=== PATIENT | male | born 1945 | race Caucasian/White ===

== ENCOUNTER → 2016-12-22 | Day surgery (SDC) | payer OTHER ==
[~2016-12-22] MED LIST: AMLO10 PO; ANTISOL30 LEFT EAR; BENZ100 PO; BUPIVACAINE/EPINEPHRINE 0.25% 50 ML VIAL ONE; IRBE150T51 PO; LACTATED RINGER'S 1000 ML INJ 1,000 ML ONE; MIDAZOLAM HCL 2 MG/2 ML VIAL ONE; ROSU40 PO; ZITH250T PO; ceFAZolin 2 GM PREMIX 50 ML ONE
== END | disposition home or self-care (01) ==
LOC: ESDC 12:15
PROVIDERS: ATTEND Surgery Trauma Surgery
DX: K40.20 Bilateral inguinal hernia, without obstruction or gangrene, not specified as recurrent (principal)
CPT/HCPCS: J0690; J2250; J7120

== ENCOUNTER → 2016-12-29 | Day surgery (SDC) | payer OTHER ==
[~2016-12-29] MED LIST changes: +BUPIVACAINE/EPINEPHRINE 0.75% PF 30 ML VIAL INFIL ONE; +KETOROLAC TROMETHAMINE 30 MG/ML (IVP) VIAL IV PUSH ONE; +ONDANSETRON HCL 4 MG/2 ML VIAL IV PUSH ONE; +PROPOFOL 200 MG/20 ML AMP IV ONE
--- NOTE | 2016-12-29 14:20 | TN ---
cc: JAQUAN NAVA M.D. DATE OF SURGERY: 12/29/2016 PREOPERATIVE DIAGNOSIS Bilateral inguinal hernia umbilical hernia. POSTOPERATIVE DIAGNOSES Bilateral inguinal hernia, umbilical hernia. PROCEDURE Laparoscopic repair bilateral inguinal hernia with mesh umbilical hernia repair. SURGEON Jaquan Nava MD. ANESTHESIA General INDICATIONS This is a pleasant 71-year-old gentleman who looks much younger than his stated age who presents with complaints of suprapubic discomfort. He was noted to have an umbilical hernia by Dr. Easton. PHYSICAL EXAMINATION: Physical examination demonstrates a small bilateral reducible inguinal hernias and a small reducible umbilical hernia. INTRAOPERATIVE FINDINGS Bilateral indirect inguinal hernias. Weak inguinal floor on the right. 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 ESTIMATED BLOOD LOSS: Estimated blood loss is minimal. DESCRIPTION OF PROCEDURE IN DETAIL The patient identified as Stepan as on taken to upper and placed supine position. Sequential compression devices were placed on bilateral lower extremities. Following induction of adequate general anesthesia the patient's lower abdomen was prepped and draped in usual sterile fashion with Betadine. A time-out procedure was performed. Following completion time-out procedure everyone's satisfaction within the room local anesthetic was placed in and around the umbilicus. Infraumbilical small transverse incision was carried out with scalpel umbilical skin was lifted off the herniated tissue through the defect which was about a centimeter in size. Anterior rectus fascia left side was then cleared anteriorly and on its medial border was incised with scalpel allowing for development of preperitoneal plane posterior to the muscle directed towards the pubic symphysis. The patient slight Trendelenburg position. The preperitoneal dissecting balloon was placed in preperitoneal space its balloon inflated to insufflation to level of 11 mmHg ensued. On summary the lead less intense the preperitoneal dissecting balloon was placed in preperitoneal space under direct laparoscopic view inflated to a total of approximately 30 pumps. This lap identification of symphysis pubis on bilateral Phoenix's ligaments. The wound was desufflated and the structural balloon trocar placed in preperitoneal space its balloon inflated to insufflation to level of 11 mmHg ensued. Two infraumbilical midline 5 mm trocars were placed in preperitoneal space under direct laparoscopic view after incision skin with scalpel. The attention was turned to left side first. Blunt dissection lateral and posterior spermatic cord was performed. The anteromedial surface examined and indirect hernias sac was reduced from the internal inguinal ring to the base of spermatic cord. Posterior laterally a spermatic cord lipoma was present was reduced from the inguinal canal to the preperitoneal space. A 4 x 6 inches piece of atrium Prolene mesh was then placed across the anterolateral placed with an anterolateral slit and around surrounding the spermatic cord and tacked position pro tack device. Tacks were placed to approximate the anterolateral slit along the inferior lateral border of Phoenix's ligament a two x 6 inches piece of mesh was then placed across the anterolateral slit and held position with the capture device. Tacks were placed in inferomedial superior medial and superior laterally. Care was taken to avoid tack placement inferolaterally to avoid cutaneous nerve injury. Attention was then turned to the right side. Similar blunt dissection ensued and nearly identical findings were discovered. An indirect inguinal hernia sac was reduced to the base of spermatic cord. A small spermatic cord lipoma was reduced from the internal inguinal ring. Photographs taken of the hernia defect and a 4 x 6 inches piece of atrium Prolene mesh was cut to an anterolateral slit placed around the spermatic cord and tacked position with the capture device. A 2 x 6 inches piece of mesh was placed to cover the anterolateral slit and held position of the capture device tacks were placed inferomedial superior medially and the superior laterally. Care was taken to avoid tack placement inferolaterally to avoid cutaneous nerve injury. Photographs were taken. The completed repairs. Remaining local anesthetic was placed in the preperitoneal space. Trocars removed under direct visualization was also bleeding from trocar sites. The preperitoneal space was desufflated under direct laparoscopic visualization holding the mesh inferolaterally again see abdominal wall allowing the peritoneum to return to its normal anatomic position. Trocars were removed. There is no evidence of bleeding from trocar sites. Preperitoneal space. SUMMARY The preperitoneal structural balloon trocars were removed. The anterior rectus fascial incision was closed running 2-0 Vicryl suture. The umbilical hernia defect was closed with interrupted inverted zero Prolene sutures. The umbilicus reformed with undyed 2-0 Vicryl sutures. Skin incisions were approximated 4-0 Monocryl subcuticular sutures. Dressings were applied, Mastisol inch brown Steri-Strips, gauze and Tegaderm. The patient tolerated the procedure without apparent complication. Sponge, needle and instrument counts were correct at the end of the case. MD BARON Mercado/klaudia /9:20 AM /1:53 PM
== END | disposition home or self-care (01) ==
LOC: ESDC 06:25
PROVIDERS: ATTEND Surgery Trauma Surgery
DX: K40.20 Bilateral inguinal hernia, without obstruction or gangrene, not specified as recurrent (principal); K42.9 Umbilical hernia without obstruction or gangrene; D17.6 Benign lipomatous neoplasm of spermatic cord
CPT/HCPCS: 00750; 00840; 49585; 49650; C1727; C1781; J0690; J1885; J2250; J2405; J3010; J7120